=== PATIENT | male | born 1975 | race Caucasian/White ===

== ENCOUNTER 2022-07-29 19:44 | Emergency (ER) | payer MEDICAID, MEDICARE ==
[~2022-07-29] VITALS: Ht 162.6 cm; Wt 59.1 kg
[~2022-07-29 19:44] MED LIST: PHEN100C23 PO
[2022-07-29] MEDS ORDERED: PERTUSS(ACELL),DIPH,TET VAC/PF 0.5 ML SYRINGE IM. ONE (22:15)
[2022-07-29] MEDS ORDERED: LIDOCAINE 1% 10 ML VIAL SQ ONE (22:30)
[2022-07-29] MEDS ORDERED: LORazepam 2 MG/ML VIAL IM ONE (23:00)
[2022-07-29] MEDS ORDERED: CEPHALEXIN MONOHYDRATE 500 MG CAPSULE PO ONE (23:30)
[2022-07-30] MEDS ORDERED: BACITRACIN ZINC/POLYMYXIN B 14.2 GM OINTMENT TP ONE (00:15)
[2022-07-30 03:28] VITALS: BP 112/70
== END 2022-07-30 03:30 | disposition home or self-care (01) ==
LOC: EMS 19:49
DX: S61.412A Laceration without foreign body of left hand, initial encounter (principal); G40.909 Epilepsy, unspecified, not intractable, without status epilepticus; F12.90 Cannabis use, unspecified, uncomplicated; F15.90 Other stimulant use, unspecified, uncomplicated; V93.6 Machinery accident on board watercraft; Y93.89 Activity, other specified; Y92.89 Other specified places as the place of occurrence of the external cause; Y99.8 Other external cause status
CPT/HCPCS: 99291; 90715; 90471; 12002; J3490